=== PATIENT | male | born 1955 ===

== ENCOUNTER 2017-07-29 09:34 | Emergency (ER) | payer BC ==
[2017-07-29 09:37] VITALS: TEMP 98.2; O2SAT 98; BMI 22.6
[2017-07-29] MEDS ORDERED: Naproxen 500 MG TAB PO STA (09:49)
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
[2017-07-29] MEDS ORDERED: Naproxen 500 MG TAB PO ONE (09:53)
[2017-07-29 11:10] VITALS: BP 136/90; PULSE 72; RESP 18
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
--- NOTE | 2017-07-29 11:14 | RAD ---
PROCEDURE: Left Knee Radiographs. HISTORY: Pain. COMPARISON: None. FINDINGS: BONES: No evidence of acute displaced fracture nor dislocation. JOINTS: Normal. No osteoarthritis. JOINT EFFUSION: Questionable trace suprapatellar joint effusion. OTHER FINDINGS: None. IMPRESSION: No evidence of acute displaced fracture nor dislocation.
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
== END 2017-07-29 11:09 | disposition home or self-care (01) ==
LOC: H.ER 09:34
DX: T14.8 Other injury of unspecified body region (principal); V03.10XA Pedestrian on foot injured in collision with car, pick-up truck or van in traffic accident, initial encounter; Y92.410 Unspecified street and highway as the place of occurrence of the external cause; I10 Essential (primary) hypertension